=== PATIENT | male | born 1970 | race Caucasian/White ===

== ENCOUNTER 2019-07-12 13:37 | Emergency (ER) | payer OTHER ==
[~2019-07-12] VITALS: Ht 172.7 cm; Wt 95.3 kg
[2019-07-12] MEDS ORDERED: DEXAMETHASONE SOD PHOS 10 MG/1 ML VIAL IM ONE (13:45)
[2019-07-12] MEDS ORDERED: KETOROLAC TROMETHAMINE 60 MG/2 ML VIAL IM ONE (14:45)
[2019-07-12] MEDS ORDERED: KETOROLAC TROMETHAMINE 30 MG/ML VIAL ONE (14:59)
[2019-07-12] MEDS ORDERED: CYCLOBENZAPRINE5 MG PO (15:09)
[2019-07-12] MEDS ORDERED: NAPROSYN500 MG PO (15:09)
[2019-07-12] MEDS ORDERED: ULTRAM 50MG50 MG PO (15:09)
--- NOTE | 2019-07-12 15:18 | Diagnostic Imaging Report ---
Cervical spine, 3 views. History: Left shoulder and neck pain for 3 days. Discussion: The cervical spine is visualized on the lateral view from C1 through the top of T1 with the additional swimmer's view. There is smooth reversal of the normal lordotic curvature. There is no evidence of fracture, subluxation, or posterior splaying. Severe disc space with osteophytosis and uncovertebral hypertrophy is present at C6-C7. The prevertebral soft tissues are within normal limits. IMPRESSION: Degenerative changes in the lower cervical spine. Signed by: Rajan Fonseca on 07/12/2019 3:14 PM
[2019-07-12 15:23] VITALS: BP 147/65
--- OUTSIDE RECORDS SUMMARY | 2019-07-14 13:59 | XMS REPORT ---
Author Author [facility] Address Unknown Phone Unavailable Care Team Providers Care Product Support Manager Name Role Phone TAMRA BUTCHER Unavailable Unavailable Problems This patient has no known problems. Allergies, Adverse Reactions, Alerts This patient has no known allergies or adverse reactions. Medications This patient has no known medications. Results Test Description Test Time Test Comments Text Results Atomic Results Result Comments [facility] 2[facility] 2019-07-12 15:13:00 [place] [address] Patient Name: SUNNY ALAN MR #: [id number] : 1970 Age/Sex: 49/M Req #: [id number] [facility] Physician: Ordered by: TAMRA BUTCHER MD Report #: [id number] Location: [facility] Room/Bed: Procedure: [id number] HOPD/C SPINE 2--3 VE - [facility] Exam Date: 07/12/19 Exam Time: 1355 REPORT STATUS: Signed Cervical spine, 3 views. History: Left s houlder and neck pain for 3 days. Discussion: The cervical spine is visualized on the lateral view from C1 through the top of T1 with the additional swimmer's view. There is smooth reversal of the normal lordotic curvature. There is no evidence of fracture, subluxation, or posterior splaying. Severe disc space with osteophytosis and uncovertebral hypertrophy is present at C6-C7. The prevertebral soft tissues are within normal limits. IMPRESSION: Degenerative changes in the lower cervical spine. Signed by: Bola Fonseca on 07/12/2019 3:14 PM Dictated By: BOLA FONSECA MD [id number] Transcribed By: ARMAAN on 07/12/19 1516 COPY TO: TAMRA BUTCHER MD
== END 2019-07-12 15:26 | disposition home or self-care (01) ==
LOC: FSED 13:37
DX: M25.512 Pain in left shoulder (principal); M54.12 Radiculopathy, cervical region
CPT/HCPCS: 72040; 93005; 99283; J1100; J1885